=== PATIENT | male | born 1985 | race African-American/Black ===

== ENCOUNTER 2016-07-13 20:47 | Emergency (ER) | payer MEDICAID ==
[~2016-07-13] VITALS: Ht 190.5 cm; Wt 150.0 kg
[~2016-07-13 20:47] MED LIST: ALBU8HFA IH
[2016-07-13] MEDS ORDERED: IBUP-1547 PO (21:05)
[2016-07-13] MEDS ORDERED: LIDOCAINE HCL BUFFERED 1% 20 ML VIAL INJ ONE (22:00)
[2016-07-13 23:02] VITALS: BP 129/81
== END 2016-07-13 23:04 | disposition home or self-care (01) ==
LOC: EMS 20:48
DX: L02.412 Cutaneous abscess of left axilla (principal); J45.909 Unspecified asthma, uncomplicated; F12.90 Cannabis use, unspecified, uncomplicated
CPT/HCPCS: 10060; 99283; J3490

== ENCOUNTER 2017-03-13 07:18 | Emergency (ER) | payer MEDICAID ==
[~2017-03-13] VITALS: Ht 190.5 cm; Wt 136.4 kg
[~2017-03-13 07:18] MED LIST changes: -ALBU8HFA IH; +IBUP-2071 PO
[2017-03-13] MEDS ORDERED: KETOROLAC TROMETHAMINE 60 MG/2 ML VIAL IM ONE (09:15)
[2017-03-13] MEDS ORDERED: METHOCARBAMOL 500 MG TABLET PO ONE (09:15)
[2017-03-13 11:09] VITALS: BP 135/92
== END 2017-03-13 11:12 | disposition home or self-care (01) ==
LOC: EMS 07:20
DX: S16.1XXA Strain of muscle, fascia and tendon at neck level, initial encounter (principal); S40.012A Contusion of left shoulder, initial encounter; J45.909 Unspecified asthma, uncomplicated; F12.90 Cannabis use, unspecified, uncomplicated; V43.52XA Car driver injured in collision with other type car in traffic accident, initial encounter; Y93.89 Activity, other specified; Y92.89 Other specified places as the place of occurrence of the external cause; Y99.8 Other external cause status
CPT/HCPCS: 73030; 96372; 99284; J1885

== ENCOUNTER 2023-02-15 14:03 | Emergency (ER) | payer MEDICAID, OTHER ==
[~2023-02-15] VITALS: Ht 190.5 cm; Wt 100.0 kg
[2023-02-15 14:05] VITALS: TEMP 98.4
[2023-02-15] MEDS ORDERED: LIDOCAINE 5% TRANSDERMAL PATCH TD ONE (15:30)
[2023-02-15 17:47] VITALS: BP 127/86; PULSE 82; RESP 18
== END 2023-02-15 17:48 | disposition home or self-care (01) ==
LOC: EMS 14:28
DX: S46.912A Strain of unspecified muscle, fascia and tendon at shoulder and upper arm level, left arm, initial encounter (principal); J45.909 Unspecified asthma, uncomplicated; F12.90 Cannabis use, unspecified, uncomplicated; V49.9XXA Car occupant (driver) (passenger) injured in unspecified traffic accident, initial encounter; Y93.89 Activity, other specified; Y92.89 Other specified places as the place of occurrence of the external cause; Y99.8 Other external cause status
CPT/HCPCS: 99283